=== PATIENT | male | born 1950 | race Asian ===

== ENCOUNTER 2024-02-08 08:23 | Day surgery (SDC) | payer OTHER, SELFPAY ==
[2024-02-08] VITALS (25 sets, daily range): BP systolic 95–133; BP diastolic 58–84; BMI 22.0
--- NOTE | 2024-02-08 11:20 | ITS.CL.CATH ---
[facility] - Catheterization
Cardiac Catheterization
Procedure Report:
CARDIAC CATHETERIZATION REPORT
Date of Procedure: 02/08/2024
Referring: Stephan Rogers MD
Indication: Angina with high rate stress test and diabetes
HEMODYNAMIC DATA
AO: 138/74
LV: 138/20
LEFT VENTRICULOGRAPHY: Normal ventricular wall motion with EF 64%
CORONARY ANGIOGRAPHY
Dominance: Right
Left Main: Severe calcification without stenosis
LAD: The LAD is moderately calcified. There is a 50% proximal LAD stenosis and otherwise trivial luminal disease in the LAD proper. The high rising first diagonal branch is a small caliber (1-1.5 mm) moderate distribution vessel with diffuse
80-90% ostial/proximal stenosis
Circumflex: Mild luminal irregularities
RCA: Dominant vessel with mild luminal irregularities
FloWire assessment: The 50% proximal LAD lesion was evaluated with FloWire due to the high rate stress test showing large area of anterior ischemia. Heparin was used for anticoagulation. A 6 Greek JL 4 guide catheter was used. A [employer] wire was
advanced into the distal LAD. iFR measurements were 0.97, 0.98, 0.98. These are all consistent with nonflow-limiting disease.
Closure Device: None-the procedure was performed via the right radial artery. The Jesse's test was normal prior to the procedure.
Radiation (mGy): 189
DAP (cm2.Gy): 17.2
Fluoroscopy time: 3.3 minutes
CONCLUSIONS
1: Elevated LVEDP
2: Normal left ventricular function with EF 64%
3. Single-vessel CAD as described. FloWire assessment shows the proximal LAD disease is nonflow limiting. The small caliber diagonal originates from the diseased segment of proximal LAD and would not be amenable to any PCI without jeopardizing
the LAD proper
4. Recommend continued risk factor modification efforts including smoking cessation. If he has anginal symptoms requiring treatment, medical therapy will be a much better option than trying to treat the ostial/proximal disease in the small caliber
diagonal branch
Copy to: Stephan Rogers MD, Quentin Braden MD
Karthikeyan Raymundo MD, FAC, [facility]
[2024-02-08 11:44] LABS: ACT-LR - POC 250 Seconds (116-155)
[2024-02-08] MEDS: NSS 1000 IV ×2 (13:55→13:56)
== END 2024-02-08 15:40 | disposition home or self-care (01) ==
LOC: CATH 08:23
PROVIDERS: ATTENDING PHYSICIAN Internal Medicine Cardiovascular Disease
DX: I25.119 Atherosclerotic heart disease of native coronary artery with unspecified angina pectoris (principal); R94.39 Abnormal result of other cardiovascular function study; F17.210 Nicotine dependence, cigarettes, uncomplicated; I10 Essential (primary) hypertension; E78.5 Hyperlipidemia, unspecified; I45.10 Unspecified right bundle-branch block; E11.9 Type 2 diabetes mellitus without complications; Z79.82 Long term (current) use of aspirin; Z79.84 Long term (current) use of oral hypoglycemic drugs
CPT/HCPCS: C1769; C1894; 85347; 93458; 93571; Q9967